=== PATIENT | male | born 1950 | race Caucasian/White ===

== ENCOUNTER 2017-06-02 08:03 | Emergency (ER) | payer MEDICARE, OTHER ==
[2017-06-02] MEDS ORDERED: NS 0.9% 1000 ML* 1,000 ML IV ONE (08:47)
[2017-06-02 09:24] LABS: Hematocrit 43 % (42-52); Hemoglobin 14.3 g/dl (14.0-18.0); Mean Corpuscular HGB Conc 34 g/dl (31-36); Mean Corpuscular Hemoglobin 31 pg (27-31); Mean Corpuscular Volume 92 fL (80-94); Mean Platelet Volume 9 um3 (7.4-10.4); Red Blood Count 4.65 10^6/ul (4.0-5.4); Red Cell Distribution Width 14 % (10.5-15); White Blood Count 6.8 10^3/ul (3.5-10.8)
[2017-06-02 09:35] LABS: ALT 17 U/L (7-52); AST 19 U/L (13-39); Alkaline Phosphatase 55 U/L (34-104); Anion Gap 7 mmol/L (2-11); BUN/Creatinine Ratio 14.3 (8-20); Blood Urea Nitrogen 13 mg/dL (6-24); C Reactive Protein < 1.00 mg/L (< 5.00); CO2 Carbon Dioxide 26 mmol/L (22-32); Calcium 9.3 mg/dL (8.6-10.3); Chloride 105 mmol/L (101-111); EGFR African American 107.5 (>60); EGFR Non-African American 83.6 (>60); Globulin 2.4 g/dL (2-4); Glucose 165 mg/dL (70-100); Lipase 17 U/L (11.0-82.0); Potassium 3.9 mmol/L (3.5-5.0); Sodium 138 mmol/L (133-145); Total Protein 6.4 g/dL (6.4-8.9)
[2017-06-02 10:52] LABS: Urine Bilirubin Negative (Negative); Urine Glucose Negative (Negative); Urine Nitrite Negative (Negative)
[2017-06-02] MEDS ORDERED: Iodixanol* (CONTRAST) 320 MG/ML 100 ML SDV IV ONE (11:21)
--- NOTE | 2017-06-02 11:42 | RAD ---
INDICATION: Abdominal pain and rectal bleeding. Anal protrusion since last night. Question colitis. Previous bilateral hernia repair. Previous surgery for duodenal ulcer. Hiatal hernia. Previous hemorrhoidectomy. COMPARISON: November 23, 2008 CT. TECHNIQUE: Multidetector CT images were obtained from the lung bases to the ischial tuberosities with 94 mL Visipaque 320 IV and oral contrast. Multiplanar reformation. REPORT: Unremarkable visualized inferior thorax. Too small to characterize 0.7 cm well-circumscribed hypodense lesion at the dome of the LEFT medial hepatic segment new compared with the 2008 exam is most suspicious for a cyst or hemangioma. This small solitary lesion is low suspicion based on morphology. Negative for additional focal hepatic lesions. Negative for biliary dilatation. No CT abnormality of the gallbladder, pancreas, spleen. Mild mural thickening at the gastric antrum is likely artifact due to incomplete distention. No perigastric inflammatory change evident. No CT abnormality of the decompressed duodenum, jejunum, or ileum. Normal retrocecal appendix visualized. Enteric contrast extends to the splenic flexure of the colon. Severe diverticulosis of the sigmoid colon without findings of acute diverticulitis. No CT abnormality conspicuous at the level of the distal rectum or anal canal. Negative for ascites, free air, hernias. Postsurgical change of bilateral inguinal hernia repairs. Normal adrenal glands. Unremarkable kidneys with symmetric nephrograms and pyelograms. Unremarkable nondilated ureters. Partially distended urinary bladder without wall thickening or visualized focal lesion. Prostatomegaly with the prostate protruding into the floor of the urinary bladder. Symmetric seminal vesicles. Negative for lymphadenopathy. Minimal atherosclerotic plaque of normal diameter abdominal aorta and iliac arteries. Physiologic distention of the IVC. Negative for suspicious focal osseous lesions. Mild polyarticular degenerative arthropathy. IMPRESSION: 1. Mural thickening at the gastric antrum is likely artifact due to incomplete distention. This common finding is only mentioned due to history of prior duodenal ulcer. If there is clinical concern for gastric pathology consider follow-up upper GI series. 2. Normal appendix documented. 3. Sigmoid diverticulosis without findings of diverticulitis. No CT evidence for colitis. 4. No CT abnormality conspicuous at the level of the distal rectum or anal canal. Correlate with clinical exam. 5. Negative for lymphadenopathy.
[2017-06-02 13:00] VITALS: BP 113/69
--- NOTE | 2017-06-02 13:01 | ED ---
Joel Arroyo Angela, scribed for Jonathon Mayo MD on 06/02/17 at 0838 . GI/ HPI - HPI Summary HPI Summary: This pt is a 67 y/o male presenting to [facility] c/o rectal bleeding x3 days with some abdominal discomfort. Pt reports that last night before he went to bed he noticed a little bit of stool with a lot of blood dispersed in the water. Pt states he does not feel abd pain but has discomfort, rated 1 out of 10 in severity. He notes he has had an anal protrusion since last night. Pt reports that over the weekend, 4 days ago, the pt had black stools but has gradually improved since then. This morning, pt states his stools were normal looking and had no blood. He denies chest pain, SOB, rhinorrhea, cough, cold. Pt has a PMHx of internal hemorrhoids and had a hemorrhoidectomy in 1999. He denies PMHx of diverticulosis. Pt is currently being treated for a stomach ulcer since December 2016, but has not had black stools with these. Pt is not on any anticoagulants. Pt is currently on novolog insulin, simvastatin, Esomeprazole 20 mg daily. Pt has stopped taking these medications: omeprazole (08/11/16), pantoprazole (), cetirizine (08/03/16). - History of Current Complaint Chief Complaint: EDGIBleed Time Seen by Provider: 06/02/17 08:27 Stated Complaint: RECTAL BLEEDING Hx Obtained From: Patient Onset/Duration: Started Days Ago Timing: Lasting Days Pain Intensity: 1 Location of Pain: Other - lower abdominal Associated Signs and Symptoms: Positive: Hematemesis, Blood w/Stool, Other: - Internal hemorrhoids. Negative: Back Pain, Dizziness, Weakness, Nausea, Vomiting, Rectal Pain, Diarrhea, Hematuria, Dysuria, Melena - Allergy/Home Medications Allergies/Adverse Reactions: Allergies Allergy/AdvReac Type Severity Reaction Status Date / Time No Known Allergies Allergy Verified 06/02/17 08:07 Home Medications: Home Medications Esomeprazole(NF) [NEXium(NF)] 20 mg PO DAILY 06/02/17 [History Confirmed ] Insulin ASPART (NF) [Novolog (NF)] 0 - 100 units SUBCUT DAILY 06/02/17 [History Confirmed 06/02/17] Simvastatin (NF) [Zocor (NF)] 40 mg PO DAILY 06/02/17 [History Confirmed ] PMH/Surg Hx/FS Hx/Imm Hx Endocrine/Hematology History: Reports: Hx Diabetes - type 1 Cardiovascular History: Denies: Hx Hypertension GI History: Reports: Hx Hiatal Hernia, Hx Ulcer Denies: Hx Diverticulosis - Surgical History Surgery Procedure, Year, and Place: Corrective left eye surgery: age 5, 1955. Broken left elbow: early spring 1972. Hemorroidectomy 12/11/1999. Colonoscopy: 08/26/01, 07/20,, 01/23/14. Endoscopy: 12/22/16 (duodenal ulcer, 1 polyp, hiatal hernia). Bilateral inguinal hernia surgery: 07/08/04 Infectious Disease History: Denies: Traveled Outside the [place] in Last 30 Days - Family History Known Family History: Negative: Other - colon cancer - Social History Alcohol Use: None Substance Use Type: Reports: None Smoking Status (MU): Never Smoked Tobacco Review of Systems Negative: Fever, Chills Eyes: Negative ENT: Negative Negative: Chest Pain Negative: Shortness Of Breath Positive: Abdominal Pain - discomfort Positive: other - bloody stools Positive: Other - internal hemorrhoids Negative: Headache, Weakness All Other Systems Reviewed And Are Negative: Yes Physical Exam - Summary Physical Exam Summary: The patient is well-nourished in no acute distress. The skin is warm and dry. Pt is pale looking. HEENT: The head is normocephalic and atraumatic. The pupils are equal and reactive. The conjunctivae are clear and without drainage. Nares are patent and without drainage. Mouth reveals moist mucous membranes and the throat is without erythema and exudate. The external ears are intact. The ear canals are patent and without drainage. The tympanic membranes are intact. Neck is supple with full range of motion and non-tender. Respiratory: Chest is non-tender. Lungs are clear to auscultation and breath sounds are symmetrical and equal. Cardiovascular: Hear is regular rate and rhythm. There is a systolic murmur in the left second ICS. There is no peripheral edema and pulses are symmetrical and equal. Abdomen: The abdomen is soft and there is left lower quadrant pain. There are normal bowel sounds heard in all four quadrants. There is no CVA tenderness. GI: There is a skin tag, there is a small anal fissure at about 3 o'clock. There is no active bleeding externally. On rectal exam there is red mucous blood noted. Musculoskeletal: There is no reproducible back pain noted. Extremities are non- tender with full range of motion. There is good capillary refill. There is no peripheral edema or calf tenderness elicited. Neurological: Patient is alert and oriented to person, place and time. The patient has symmetrical motor strength in all four extremities. Psychiatric: The patient has an appropriate affect and does not exhibit any anxiety or depression. Triage Information Reviewed: Yes Vital Signs On Initial Exam: Initial Vitals Temp Pulse Resp BP Pulse Ox 98.9 F 78 16 127/75 98 06/02/17 08:07 06/02/17 08:07 06/02/17 08:07 06/02/17 08:07 06/02/17 08:07 Vital Signs Reviewed: Yes Diagnostics - Vital Signs Vital Signs Temp Pulse Resp BP Pulse Ox 06/02/17 08:07 98.9 F 78 16 127/75 98 - Laboratory Lab Results: Lab Results 06/02/17 06/02/17 06/02/17 Range/Units 09:00 09:00 09:00 WBC 6.8 (3.5-10.8) 10^3/ul RBC 4.65 (4.0-5.4) 10^6/ul Hgb 14.3 (14.0-18.0) g/dl Hct 43 (42-52) % MCV 92 (80-94) fL MCH 31 (27-31) pg MCHC 34 (31-36) g/dl RDW 14 (10.5-15) % Plt Count 195 (150-450) 10^3/ul MPV 9 (7.4-10.4) um3 Neut % (Auto) 77.9 (38-83) % Lymph % (Auto) 12.7 L (25-47) % [place] % (Auto) 8.3 (1-9) % Eos % (Auto) 0.6 (0-6) % Baso % (Auto) 0.5 (0-2) % Absolute Neuts (auto) 5.3 (1.5-7.7) 10^3/ul Absolute Lymphs (auto) 0.9 L (1.0-4.8) 10^3/ul Absolute Monos (auto) 0.6 (0-0.8) 10^3/ul Absolute Eos (auto) 0 (0-0.6) 10^3/ul Absolute Basos (auto) 0 (0-0.2) 10^3/ul Absolute Nucleated RBC 0.01 10^3/ul Nucleated RBC % 0.1 INR (Anticoag Therapy) 0.97 (0.89-1.11) Sodium 138 (133-145) mmol/L Potassium 3.9 (3.5-5.0) mmol/L Chloride 105 (101-111) mmol/L Carbon Dioxide 26 (22-32) mmol/L Anion Gap 7 (2-11) mmol/L BUN 13 (6-24) mg/dL Creatinine 0.91 (0.67-1.17) mg/dL Est GFR ( Amer) 107.5 (>60) Est GFR (Non-Af Amer) 83.6 (>60) BUN/Creatinine Ratio 14.3 (8-20) Glucose 165 H (70-100) mg/dL Lactic Acid (0.5-2.0) mmol/L Calcium 9.3 (8.6-10.3) mg/dL Total Bilirubin 2.00 H (0.2-1.0) mg/dL AST 19 (13-39) U/L ALT 17 (7-52) U/L Alkaline Phosphatase 55 (34-104) U/L C-Reactive Protein < 1.00 (< 5.00) mg/L Total Protein 6.4 (6.4-8.9) g/dL Albumin 4.0 (3.2-5.2) g/dL Globulin 2.4 (2-4) g/dL Albumin/Globulin Ratio 1.7 (1-3) Lipase 17 (11.0-82.0) U/L Urine Color Urine Appearance Urine pH (5-9) Ur Specific [place] (1.010-1.030) Urine Protein (Negative) Urine Ketones (Negative) Urine Blood (Negative) Urine Nitrate (Negative) Urine Bilirubin (Negative) Urine Urobilinogen (Negative) Ur Leukocyte Esterase (Negative) Urine Glucose (Negative) 06/02/17 06/02/17 Range/Units 09:00 09:37 WBC (3.5-10.8) 10^3/ul RBC (4.0-5.4) 10^6/ul Hgb (14.0-18.0) g/dl Hct (42-52) % MCV (80-94) fL MCH (27-31) pg MCHC (31-36) g/dl RDW (10.5-15) % Plt Count (150-450) 10^3/ul MPV (7.4-10.4) um3 Neut % (Auto) (38-83) % Lymph % (Auto) (25-47) % [place] % (Auto) (1-9) % Eos % (Auto) (0-6) % Baso % (Auto) (0-2) % Absolute Neuts (auto) (1.5-7.7) 10^3/ul Absolute Lymphs (auto) (1.0-4.8) 10^3/ul Absolute Monos (auto) (0-0.8) 10^3/ul Absolute Eos (auto) (0-0.6) 10^3/ul Absolute Basos (auto) (0-0.2) 10^3/ul Absolute Nucleated RBC 10^3/ul Nucleated RBC % INR (Anticoag Therapy) (0.89-1.11) Sodium (133-145) mmol/L Potassium (3.5-5.0) mmol/L Chloride (101-111) mmol/L Carbon Dioxide (22-32) mmol/L Anion Gap (2-11) mmol/L BUN (6-24) mg/dL Creatinine (0.67-1.17) mg/dL Est GFR ( Amer) (>60) Est GFR (Non-Af Amer) (>60) BUN/Creatinine Ratio (8-20) Glucose (70-100) mg/dL Lactic Acid 0.7 (0.5-2.0) mmol/L Calcium (8.6-10.3) mg/dL Total Bilirubin (0.2-1.0) mg/dL AST (13-39) U/L ALT (7-52) U/L Alkaline Phosphatase (34-104) U/L C-Reactive Protein (< 5.00) mg/L Total Protein (6.4-8.9) g/dL Albumin (3.2-5.2) g/dL Globulin (2-4) g/dL Albumin/Globulin Ratio (1-3) Lipase (11.0-82.0) U/L Urine Color Straw Urine Appearance Clear Urine pH 7.0 (5-9) Ur Specific [place] 1.006 L (1.010-1.030) Urine Protein Negative (Negative) Urine Ketones Trace H (Negative) Urine Blood Negative (Negative) Urine Nitrate Negative (Negative) Urine Bilirubin Negative (Negative) Urine Urobilinogen Negative (Negative) Ur Leukocyte Esterase Negative (Negative) Urine Glucose Negative (Negative) Result Diagrams: 06/02/17 09:00 06/02/17 09:00 Lab Statement: Any lab studies that have been ordered have been reviewed, and results considered in the medical decision making process. - CT Abd/Pel CT CT Interpretation: Positive (See Comments) - IMPRESSION: 1. Mural thickening at the gastric antrum is likely artifact due to incomplete distention. This common finding is only mentioned due to history of prior duodenal ulcer. If there is clinical concern for gastric pathology consider follow-up upper GI series. 2. Normal appendix documented. 3. Sigmoid diverticulosis without findings of diverticulitis. No CT evidence for colitis. 4. No CT abnormality conspicuous at the level of the distal rectum or anal canal. Correlate with clinical exam. 5. Negative for lymphadenopathy. ED physician has reviewed this radiology report and agrees. CT Interpretation Completed By: Radiologist Re-Evaluation - Re-Evaluation First Eval Re-Evaluation Time: 12:40 Comment: I reviewed the CT results with the pt. He will follow up with Dr. Garibay. [facility] Course/Dx - Course Assessment/Plan: pt is a 67 y/o male presenting to [facility] c/o rectal bleeding x3 days with some abdominal discomfort. Pt reports anal protrusion last night with more rectal bleeding. Labs and CT abd/pel were obtained. Stool occult blood is negative. CT abd/pel shows 1. Mural thickening at the gastric antrum is likely artifact due to incomplete distention. This common finding is only mentioned due to history of prior duodenal ulcer. If there is clinical concern for gastric pathology consider follow-up upper GI series. 2. Normal appendix documented. 3. Sigmoid diverticulosis without findings of diverticulitis. No CT evidence for colitis. 4. No CT abnormality conspicuous at the level of the distal rectum or anal canal. Correlate with clinical exam. 5. Negative for lymphadenopathy. Pt will be discharged to home and will follow up with his PCP and Dr. Garibay. - Diagnoses Differential Diagnoses - Male: Cancer, Colitis, Diverticulosis, Hemorrhoids, Other - anal fissure, diverticulitis Provider Diagnoses: Possible rectal bleeding, Diverticulosis of colon Discharge - Discharge Plan Condition: Stable Disposition: HOME Patient Education Materials: Rectal Bleeding (ED) Referrals: Wiliam Jimenez DO [Primary Care Provider] - Logan Garibay MD [Medical Doctor] - Additional Instructions: Please follow up with your primary care provider, Dr. Jimenez, and Dr. Garibay, from GI. The documentation as recorded by the Joel morgan Angela accurately reflects the service I personally performed and the decisions made by me, Jonathon Mayo MD.
== END 2017-06-02 13:03 | disposition home or self-care (01) ==
LOC: ED 08:03
DX: K57.90 Diverticulosis of intestine, part unspecified, without perforation or abscess without bleeding (principal); K62.5 Hemorrhage of anus and rectum; K64.8 Other hemorrhoids
CPT/HCPCS: 36415; 74177; 80053; 81003; 82272; 83605; 83690; 85025; 85610; 86140; 99283; Q9967

== ENCOUNTER 2019-04-01 17:27 | Emergency (ER) | payer MEDICARE, OTHER ==
--- OUTSIDE RECORDS SUMMARY | 2019-04-01 17:43 | XMS REPORT | Continuity of Care Document ---
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 ETOH Use 06/02/2017 Denies alcohol use Tobacco Use Start: Unknown Patient has never smoked Recreational Drug Use Denies Drug Use Tobacco Use Start: Unknown Patient is a former 40 years ago - End: Unknown smoker occasional Cigars Smoking Status Reviewed: 03/29/19 Patient is a former 40 years ago - smoker occasional Cigars Exercise Type/Frequency Exercises regularly Stretches Allergies, Adverse Reactions, Alerts Active Allergies Reaction Severity Comments Date Omeprazole GI upset 03/29/2019 Esomeprazole GI upset 03/29/2019 Inactive Allergies NKDA 06/03/2017 Medications Active Medications SIG Qnty Indications Ordering Date Provider Clopidogrel 1 by mouth every 90tabs I35.0 Prasanht Epstein, 03/29/2019 Bisulfate day DO FACC 75mg Tablets Simvastatin take 1 tablet by Unknown 40mg mouth at bedtime Tablets Novolog Insulin pump - Unknown 100Unit/ML sliding scale Solution Centrum Silver 1 by mouth every Unknown day Tablets Tension Headache 2tabs prn aspirin Unknown Relief free 500-65 Tablets DGL 1/4 a tab week prn Unknown when thinks of it, herbal supplement Tamsulosin HCL 2 by mouth every Unknown 0.4mg day Capsules Probiotic 1 by mouth three Unknown Capsules times a week History Medications Omeprazole Take one tablet 30caps Z87.11 Prasanth Epstein, 2019 - 20mg by mouth daily DO [facility] 03/28/2019 Capsules Aspirin 81 1 by mouth every 30tabs Z87.11 Prasanth Epstein, 2019 - 81mg Tablets day DO [facility] 03/29/2019 Esomeprazole 1 by mouth every Unknown - Magnesium day 01/31/2018 20mg Capsules Vitamin D-400 1 by mouth every Unknown - 400Unit day 01/31/2018 Tablets Childrens Allergy daily during Unknown - allergy season 02/02/2018 12.5mg/5ML Liquid Loratadine Childrens 5 ml po bid Unknown - 09/01/2018 5mg/5ML Solution Vital Signs Date Vital Result Comment 03/29/2019 11:11am Height 67 inches 5'7" Weight 153.00 lb with shoes Heart Rate 64 /min BP Systolic Sitting 110 mmHg lue reg cuff BP Diastolic Sitting 60 mmHg lue reg cuff BP Systolic Standing 110 mmHg lue reg cuff BP Diastolic Standing 64 mmHg lue reg cuff Respiratory Rate 16 /min BMI (Body Mass Index) 24.0 kg/m2 Ejection Fraction 60-65% echo. 2019 2:08pm Height 67 inches 5'7" Weight 153.00 lb with shoes Heart Rate 72 /min BP Systolic Sitting 100 mmHg lue reg cuff BP Diastolic Sitting 54 mmHg lue reg cuff BP Systolic Standing 94 mmHg lue reg cuff BP Diastolic Standing 56 mmHg lue reg cuff Respiratory Rate 16 /min BMI (Body Mass Index) 24.0 kg/m2 Ejection Fraction 65-70% echo. 08/23/18 09/02/2018 11:05am Height 67 inches 5'7" Weight 153.00 lb with shoes Heart Rate 67 /min BP Systolic Sitting 106 mmHg lue reg cuff BP Diastolic Sitting 68 mmHg lue reg cuff BP Systolic Standing 108 mmHg lue reg cuff BP Diastolic Standing 70 mmHg lue reg cuff BMI (Body Mass Index) 24.0 kg/m2 Ejection Fraction 65-70% echo. 08/23/18 02/03/2018 3:56pm Height 67 inches 5'7" Weight 153.00 lb no shoes Heart Rate 80 /min irregular BP Systolic Sitting 106 mmHg Lue reg cuff BP Diastolic Sitting 62 mmHg Lue reg cuff BP Systolic Standing 108 mmHg Lue reg cuff BP Diastolic Standing 60 mmHg Lue reg cuff Respiratory Rate 16 /min BMI (Body Mass Index) 24.0 kg/m2 01/19/2018 3:23pm Height 67 inches 5'7" Weight 152.00 lb Heart Rate 76 /min BP Systolic Sitting 126 mmHg lue reg cuff BP Diastolic Sitting 60 mmHg lue reg cuff BP Systolic Standing 112 mmHg BP Diastolic Standing 70 mmHg Respiratory Rate 16 /min BMI (Body Mass Index) 23.8 kg/m2 Ejection Fraction 60% 04/22/2017 echo 06/03/2017 10:17am Height 67 inches 5'7" Weight 165.00 lb no shoes Heart Rate 68 /min BP Systolic 112 mmHg Rue reg cuff BP Diastolic 74 mmHg Rue reg cuff BP Systolic Sitting 116 mmHg Lue reg cuff BP Diastolic Sitting 76 mmHg Lue reg cuff BP Systolic Standing 122 mmHg Lue reg cuff BP Diastolic Standing 82 mmHg Lue reg cuff Respiratory Rate 15 /min BMI (Body Mass Index) 25.8 kg/m2 Ejection Fraction 60% 04/22/2017-echo Results Test Date Facility Test Result H/L Range Note Pre Cath 2019 [facility] Partial 31.6 seconds N 26.0- 38.[address] [place] [address] PTT [phone] CBC Auto Diff 2019 [facility] White Blood 6.7 10^3/uL N 3.5-10.[address] [place] [address] [phone] Red Blood Count 4.38 10^6/uL N 4.18-5.48 Hemoglobin 14.0 g/dL N 14.0-18.0 Hematocrit 41 % Low 42-52 Mean Corpuscular Volume 94 fL N 80-94 Mean Corpuscular Hemoglobin 32 pg High 27-31 Mean Corpuscular HGB Conc 34 g/dL N 31-36 Red Cell Distribution Width 13 % N 10-15 Platelet Count 183 10^3/uL N 150-450 Mean Platelet Volume 8.9 fL N 7.4-10.4 Abs Neutrophils 4.5 10^3/uL N 1.5-7.7 Abs Lymphocytes 1.3 10^3/uL N 1.0-4.8 Abs Monocytes 0.6 10^3/uL N 0-0.8 Abs Eosinophils 0.2 10^3/uL N 0-0.6 Abs Basophils 0.1 10^3/uL N 0-0.2 Abs Nucleated RBC 0.0 10^3/uL Granulocyte % 67.6 % Lymphocyte % 18.9 % Monocyte % 8.9 % Eosinophil % 3.6 % Basophil % 1.0 % Nucleated Red Blood Cells % 0.0 Inr/Protime 2019 [facility] Inr 1.03 N 0.82-1.[address] [place] [address] [phone] Basic Metabolic 2019 [facility] Sodium 141 mmol/L N 135- [address] [place] [address] [phone] Potassium 4.2 mmol/L N 3.5-5.0 Chloride 105 mmol/L N 101-111 Co2 Carbon Dioxide 30 mmol/L N 22-32 Anion Gap 6 mmol/L N 2-11 Glucose 171 mg/dL High 70-100 Blood Urea Nitrogen 17 mg/dL N 6-24 Creatinine 0.99 mg/dL N 0.67-1.17 BUN/Creatinine Ratio 17.2 N 8-20 Calcium 9.6 mg/dL N 8.6-10.3 Egfr Non- 75.4 >60 Egfr 91.2 >60 2 Laboratory test 06/22/2017 [facility] B-Type Natriuretic 26 pg/ mL N [address] [place] [address] [phone] 1 Standard intensity warfarin therapeutic range: 2.0-3.0 High intensity warfarin therapeutic range: 2.5-3.5 2 Because ethnic data is not always readily available, this report includes an eGFR for both -Americans and non- Americans. The National Kidney Disease Education Program (NKDEP) does not endorse the use of the MDRD equation for patients that are not between the ages of 18 and 70, are , have extremes of body size, muscle mass, or nutritional status, or are non- or non-. According to the National Kidney Foundation, irrespective of diagnosis, the stage of the disease is based on the level of kidney function: Stage Description GFR(mL/min/1.73 m(2)) 1 Kidney damage with normal or decreased GFR 90 2 Kidney damage with mild decrease in GFR 60-89 3 Moderate decrease in GFR 30-59 4 Severe decrease in GFR 15-29 5 Kidney failure <15 (or dialysis) 3 >100 to <200 pg/mL: likely compensated congestive heart failure (CHF) 200 to 400 pg/mL: likely moderate CHF >400 pg/mL: likely moderate to severe CHF Procedures Date Code Description Status 03/22/2019 46669 Cath PLMT&NJX L Ventriculog Img S&I Completed 03/21/2019 88971 ECHO Transthoracic, Real-Time 2D With Doppler And Color Completed Flow 2019 07849 EKG Tracing & Interpretation Completed 08/23/2018 64189 ECHO Transthoracic, Real-Time 2D With Doppler And Color Completed Flow 08/23/2018 95260 ECHO Transthoracic, Real-Time 2D With Doppler And Color Completed Flow 02/23/2018 46304 Stress Test Completed 02/03/2018 02692 EKG Tracing & Interpretation Completed 07/07/2017 36114 ECHO Stress Test Incl Perf Contiuous ekg Monitoring W/Phys Completed Superv 06/03/2017 05823 EKG Tracing & Interpretation Completed Encounters Type Date Location Provider Dx Diagnosis Office Visit 2019 [facility] Prasanth Epstein, R07.89 Other chest pain 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 I35.0 Nonrheumatic Of Moira Epstein, DO aortic (valve) FACC stenosis E10.8 Type 1 diabetes mellitus with unspecified complications E78.5 Hyperlipidemia, unspecified Z87.11 Personal history of peptic ulcer disease Office Visit 01/19/2018 3:40p [facility] Prasanth S. I35.0 Nonrheumatic Of Moira Epstein, DO aortic (valve) FACC stenosis E10.8 Type 1 diabetes mellitus with unspecified complications E78.5 Hyperlipidemia, unspecified Z87.11 Personal history of peptic ulcer disease I71.2 Thoracic aortic aneurysm, without rupture F17.201 Nicotine dependence, unspecified, in remission Office Visit 06/03/2017 10:40a [facility] Prasanth S. I35.0 Nonrheumatic Of Moira Epstein, DO aortic (valve) FACC stenosis R06.02 Shortness of breath E10.8 Type 1 diabetes mellitus with unspecified complications E78.5 Hyperlipidemia, unspecified Z87.11 Personal history of peptic ulcer disease Plan of Treatment 03/29/2019 - Prasanth Epstein FACCI35.0 Nonrheumatic aortic (valve) stenosisNew Medication:Clopidogrel Bisulfate 75 mg - 1 by mouth every dayComments:Do not take any more aspirinWait 3 days for your stomach to reset itself and start clopidogrel (generic plavix) 75 mg once a day.Follow up:f/u after AVR
--- OUTSIDE RECORDS SUMMARY | 2019-04-01 17:43 | XMS REPORT | Continuity of Care Document ---
:1950 External Reference #:[id number] Author Name Neeta Brady Care Team Providers Name Role Phone Wiliam Jimenez DO Primary Care Physician Unavailable Payers Date Identification Numbers Payment Provider Subscriber Policy Number: [id number] Medicare Higinio Ross PayID: [id number] [address] [place] [address] Policy Number: [id number] [facility] [employer]) Higinio Ross Group Number: [id number] 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 ETOH Use 06/02/2017 Denies alcohol use Tobacco Use Start: Unknown Patient has never smoked Recreational Drug Use Denies Drug Use Tobacco Use Start: Unknown Patient is a former 40 years ago - End: Unknown smoker occasional Cigars Smoking Status Reviewed: 03/20/19 Patient is a former 40 years ago - smoker occasional Cigars Exercise Type/Frequency Exercises regularly Stretches Allergies, Adverse Reactions, Alerts Description No Known Drug Allergies Medications Active Medications SIG Qnty Indications Ordering Date Provider Omeprazole Take one tablet by 30caps Z87.11 Prasanth Epstein, 2019 20mg mouth daily DO FACC Capsules Aspirin 81 1 by mouth every 30tabs Z87.11 Prasanth Epstein, 2019 81mg day DO FACC Tablets Simvastatin take 1 tablet by Unknown [...] Unknown Capsules times a week History Medications Esomeprazole Magnesium 1 by mouth every day Unknown - 2017 20mg Capsules Vitamin D-400 1 by mouth every day Unknown - 01/31/2018 400Unit Tablets Childrens Allergy daily during allergy Unknown - 02/02/2018 12.5mg/5ML Liquid season Loratadine Childrens 5 ml po bid Unknown - 09/01/2018 5mg/5ML Solution Vital Signs Date Vital Result Comment 2019 2:08pm Height 67 inches 5'7" Weight [...] Date Facility Test Result H/L Range Note Laboratory test 06/22/2017 [facility] B-Type Natriuretic 26 pg/ mL N [address] [address] [phone] 1 >100 to <200 pg/mL: likely compensated congestive heart failure (CHF) 200 to 400 pg/mL: likely moderate CHF >400 pg/mL: likely moderate to severe CHF Procedures Date Code Description Status 2019 70719 EKG Tracing & Interpretation Completed 08/23/2018 33742 ECHO Transthoracic, Real-Time 2D With Doppler And Color Completed Flow 08/23/2018 57296 ECHO Transthoracic, Real-Time 2D With Doppler And Color Completed Flow 02/23/2018 54118 Stress Test Completed 02/03/2018 55187 EKG Tracing & Interpretation Completed 07/07/2017 75779 ECHO Stress Test Incl Perf Contiuous ekg Monitoring W/Phys Completed Superv 06/03/2017 54135 EKG Tracing & Interpretation Completed Encounters Type Date Location Provider Dx Diagnosis Office Visit 2019 [facility] Prasanth Epstein, R07.89 Other chest pain 2:20p Of [employer] DO FACC R06.02 Shortness of breath I35.0 Nonrheumatic aortic (valve) stenosis E10.8 Type 1 diabetes mellitus with unspecified complications F17.201 Nicotine dependence, unspecified, in remission Z87.11 Personal history of peptic ulcer disease Office Visit 09/02/2018 11:20a [facility] Prasanth S. I35.0 Nonrheumatic Of [facility] Lucian, DO aortic (valve) FACC stenosis E10.8 Type 1 diabetes mellitus with unspecified complications E78.5 Hyperlipidemia, unspecified Z87.11 Personal history of peptic ulcer disease Office Visit 01/19/2018 3:40p [facility] Prasanth S. I35.0 Nonrheumatic Of [facility] Lucian, DO aortic (valve) FACC stenosis E10.8 Type 1 diabetes mellitus with unspecified complications E78.5 Hyperlipidemia, unspecified Z87.11 Personal history of peptic ulcer disease I71.2 Thoracic aortic aneurysm, without rupture F17.201 Nicotine dependence, unspecified, in remission Office Visit 06/03/2017 10:40a [facility] Prasanth S. I35.0 Nonrheumatic Of [facility] Lucian, DO aortic (valve) FACC stenosis R06.02 Shortness of breath E10.8 Type 1 diabetes mellitus with unspecified complications E78.5 Hyperlipidemia, unspecified Z87.11 Personal history of peptic ulcer disease Plan of Treatment Future Appointment(s):03/21/2019 3:00 pm - [facility] ECHO Schedule at [facility]2019 - Prasanthanuel Epstein, DO FACCR07.89 Other chest painNew Labs:Pre Cath Panel, Ordered: 03/20/19New Orders:Cardiac Catheterization , Ordered: 03/20/19Comments:Restart aspirin 81 mg once a day but take it with the omeprazoleFollow up:Schedule echo tomorrow (Wednesday 03/21) Call and get Dr. Garibay's 2 most recent office notes Please schedule cardiac catheterization Wednesday with Dr. Burnham f/u wound check with meR06.02 Shortness of pjftlhD86.0 Nonrheumatic aortic (valve) stenosisNew Orders:Echocardiogram, Ordered: 03/20/19E10.8 Type 1 diabetes mellitus with unspecified fsepjdnpgtzemH53.201 Nicotine dependence, unspecified, in astpeobepK96.11 Personal history of peptic ulcer diseaseNew Medication:Omeprazole 20 mg - Take one tablet by mouth dailyAspirin 81 81 mg - 1 by mouth every day
[2019-04-01 17:56] LABS: Urine Appearance Clear; Urine Bilirubin Negative (Negative); Urine Blood Negative (Negative); Urine Color Straw; Urine Glucose Negative (Negative); Urine Ketones Negative (Negative); Urine Nitrite Negative (Negative); Urine Protein Negative (Negative); Urine Specific Gravity 1.005 (1.010-1.030); Urine Urobilinogen Negative (Negative)
--- NOTE | 2019-04-01 18:00 | ED ---
HPI Chest Pain - HPI Summary HPI Summary: Patient is a 69 y old M brought by EMS accompanied by with chief complaint of chest pain described as ache rated at 0/10 currently that occurred today 04/01 while sitting. Symptoms aggravated by nothing. Symptoms alleviated by nitroglycerin. Patient reports shortness of breath. Patient denies nausea, vomiting, diaphoresis, dizziness. Per EMS, patients chest pain was initially rated 4/10 in severity, but then improved to 0/10 after nitroglycerin. Per EMS, patient has an aortic valve replacement scheduled in [place] in 2-3 weeks. Patient recently started on Plavix. Patient reports that he had a cardiac catheterization done last week by Dr. Burnham. Patient reports that he has a surgical consultation on 04/18/19. - History of Current Complaint Chief Complaint: EDChestPainROMI Time Seen by Provider: 04/01/19 17:38 Hx Obtained From: Patient Onset/Duration: Resolved Timing: Lasting Hours Initial Severity: Mild - 4/10 Current Severity: None Pain Intensity: 0 Pain Scale Used: 0-10 Numeric Chest Pain Radiates: No Character: Dull/Aching Aggravating Factor(s): Nothing Alleviating Factor(s): Other: - Nitroglycerin Associated Signs and Symptoms: Positive: Shortness of Breath. Negative: Dizziness, Diaphoresis, Nausea, Vomiting - Allergy/Home Medications Allergies/Adverse Reactions: Allergies Allergy/AdvReac Type Severity Reaction Status Date / Time No Known Allergies Allergy Verified 06/02/17 08:07 Home Medications: Home Medications Clopidogrel TAB* [Plavix TAB*] 75 mg PO DAILY 04/01/19 [History Confirmed ] PMH/Surg Hx/FS Hx/Imm Hx Previously Healthy: No Endocrine/Hematology History: Reports: Hx Diabetes - type 1 Cardiovascular History: Reports: Hx Angina, Hx Hypercholesterolemia, Other Cardiovascular Problems/Disorders - aortic stenosis Denies: Hx Coronary Artery Disease, Hx Hypertension, Hx Myocardial Infarction , Hx Pacemaker/ICD, Hx Valvular Heart Disease Respiratory History: Denies: Hx Asthma, Hx Chronic Obstructive Pulmonary Disease (COPD) GI History: Reports: Hx Hiatal Hernia, Hx Ulcer Denies: Hx Diverticulosis History: Denies: Hx Chronic Renal Failure, Hx Renal Disease Sensory History: Reports: Hx Contacts or Glasses Denies: Hx Hearing Aid Opthamlomology History: Reports: Hx Contacts or Glasses - Surgical History Surgery Procedure, Year, and Place: Corrective left eye surgery: age 5, 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 Broken left elbow: early spring 1972. Hemorroidectomy 12/11/1999. Colonoscopy: 08/26/01, 07/20,, 01/23/14. Endoscopy: 12/22/16 (duodenal ulcer, 1 polyp, hiatal hernia). Bilateral inguinal hernia surgery: 07/08/04 Infectious Disease History: No Infectious Disease History: Denies: Traveled Outside the [place] in Last 30 Days - Family History Known Family History: Negative: Other - colon cancer - Social History Alcohol Use: None Hx Substance Use: No Substance Use Type: Reports: None Hx Tobacco Use: No Smoking Status (MU): Never Smoked Tobacco Review of Systems Negative: Skin Diaphoresis Positive: Chest Pain Positive: Shortness Of Breath Negative: Vomiting, Nausea Neurological: Other - (-): dizziness All Other Systems Reviewed And Are Negative: Yes Physical Exam - Summary Physical Exam Summary: VITAL SIGNS: Reviewed. GENERAL: Patient is a well-developed and nourished MALE who is lying comfortable in the stretcher. Patient is not in any acute respiratory distress. HEAD AND FACE: No signs of trauma. No ecchymosis, hematomas or skull depressions. No sinus tenderness. EYES: PERRLA, EOMI x 2, No injected conjunctiva, no nystagmus. EARS: Hearing grossly intact. Ear canals and tympanic membranes are within normal limits. MOUTH: Oropharynx within normal limits. NECK: Supple, trachea is midline, no adenopathy, no JVD, no carotid bruit, no c- spine tenderness, neck with full ROM. CHEST: Symmetric, no tenderness at palpation. LUNGS: Clear to auscultation bilaterally. No wheezing or crackles. CVS: Regular rate and rhythm, S1 and S2 present, ejection systolic murmur 2/6 ABDOMEN: Soft, non-tender. No signs of distention. No rebound, no guarding, and no masses palpated. Bowel sounds are normal. EXTREMITIES: FROM in all major joints, no edema, no cyanosis or clubbing. NEURO: Alert and oriented x 3. No acute neurological deficits. Speech is normal and follows commands. SKIN: Dry and warm. Triage Information Reviewed: Yes Vital Signs On Initial Exam: Initial Vitals Temp Pulse Resp BP Pulse Ox 98.6 F 70 16 122/78 98 04/01/19 17:28 04/01/19 17:28 04/01/19 17:28 04/01/19 17:28 04/01/19 17:28 Vital Signs Reviewed: Yes Diagnostics - Vital Signs Vital Signs Temp Pulse Resp BP Pulse Ox 04/01/19 17:41 98 04/01/19 17:28 98.6 F 70 16 122/78 98 - Laboratory Result Diagrams: 04/01/19 17:50 04/01/19 17:50 Lab Statement: Any lab studies that have been ordered have been reviewed, and results considered in the medical decision making process. - Radiology Chest X-Ray Radiology Interpretation Completed By: ED Physician Summary of Radiographic Findings: No acute process. Pending official report. - EKG 4 Cardiac Rate: NL - 69 BPM EKG Rhythm: Sinus Rhythm EKG Comparison: No Significant Change - 12/29/14 Summary of EKG Findings: Sinus rhythm at [address] elevations. ST depressions in B4, B5, B6. Similar to previous EKG on 12/29/14. 2025 Cardiac Rate: NL - 77 EKG Rhythm: Sinus Rhythm EKG Comparison: No Significant Change Summary of EKG Findings: Sinus rhythm at [address] elevations. Similar to previous EKG done earlier today at 17:34. Re-Evaluation - Re-Evaluation First Eval Re-Evaluation Time: 20:32 Comment: Physician discusses updates on plan of care including EKG updates with patient. Second Eval Re-Evaluation Time: 21:36 Comment: Physician discusses discharge with patient. Patient agrees to discharge. Chest Pain Course/Dx - Course Assessment/Plan: Patient is a 69 y old M brought by EMS accompanied by with chief complaint of chest pain described as ache rated at 0/10 currently that occurred today 04/01/19 while sitting. Symptoms aggravated by nothing. Symptoms alleviated by nitroglycerin. Patient reports shortness of breath. Patient denies nausea, vomiting, diaphoresis, dizziness. Per EMS, patients chest pain was initially rated 4/10 in severity, but then improved to 0/10 after nitroglycerin. Per EMS, patient has an aortic valve replacement scheduled in [place] in 2-3 weeks. Patient recently started on Plavix. Patient reports that he had a cardiac catheterization done last week by Dr. Burnham. Patient reports that he has a surgical consultation on 04/18/19. Blood test results without any significant abnormality except for glucose of 150 and total bilirubin is 1.5. Urinalysis is negative for UTI. Troponin 1 is 0.00. EKG shows a normal sinus rhythm without any ST elevations. The patient reported that he doesnt feel well therefore I decided to another EKG. Second EKG shows a normal sinus rhythm without any ST elevations. At this time I discussed my physical exam and findings with Dr. 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 Third troponin is 0.00. Patient is hemodynamically stable alert and oriented 3. - Diagnoses Provider Diagnoses: Chest pain - Provider Notifications Discussed Care Of Patient With: Jos Rojas Time Discussed With Above Provider: 20:38 Instructed by Provider To: Other - Dr. Rojas, cardiology, doesnt recommend any further workup and states that the chest pain is probably secondary aortic valve stenosis. He recommends discharge and follow up with primary custom shop worker and primary care provider. Discharge - Sign-Out/Discharge Documenting (check all that apply): Patient Departure - discharge Patient Received Moderate/Deep Sedation with Procedure: No - Discharge Plan Condition: Stable Disposition: HOME Patient Education Materials: Chest Pain (ED) Referrals: Wiliam Jimenez DO [Primary Care Provider] - 3 Days Additional Instructions: Follow up with primary care provider and primary custom shop worker within 3 days. Return to emergency department for any new or worsening symptoms. - Billing Disposition and Condition Condition: STABLE Disposition: Home - Attestation Statements Document Initiated by Keith: Yes Documenting Scribe: Isatu Flynn Provider For Whom Keith is Documenting (Include Credential): Alberto Talavera MD Scribe Attestation: I, Isatu Flynn, scribed for Alberto Talavera MD on 04/03/19 at 2013. Scribe Documentation Reviewed: Yes Provider Attestation: The documentation as recorded by the ofeliaibsoledad, Isatu Flynn accurately reflects the service I personally performed and the decisions made by me, Alberto Talavera MD Status of Scribe Document: Viewed
[2019-04-01 18:05] LABS: ABS Basophils 0.1 10^3/ul (0-0.2); ABS Eosinophils 0.2 10^3/ul (0-0.6); ABS Lymphocytes 1.1 10^3/ul (1.0-4.8); ABS Monocytes 0.7 10^3/ul (0-0.8); ABS Neutrophils 4.5 10^3/ul (1.5-7.7); Eosinophil % 3.1 %; Hematocrit 43 % (42-52); Hemoglobin 14.4 g/dL (14.0-18.0); Lymphocyte % 16.2 %; Mean Corpuscular HGB Conc 34 g/dL (31-36); Mean Corpuscular Hemoglobin 31 pg (27-31); Mean Corpuscular Volume 94 fL (80-94); Mean Platelet Volume 8.7 fL (7.4-10.4); Platelet Count 180 10^3/uL (150-450); Red Blood Count 4.58 10^6 /uL (4.18-5.48); Red Cell Distribution Width 14 % (10-15); White Blood Count 6.6 10^3/uL (3.5-10.8)
[2019-04-01 18:16] LABS: INR 1.06 (0.82-1.09)
[2019-04-01 18:21] LABS: Albumin/Globulin Ratio 1.7 (1-3); BUN/Creatinine Ratio 17.1 (8-20); EGFR Non-African American 66.1 (>60); Globulin 2.4 g/dL (2-4); Total Bilirubin 1.5 mg/dL (0.2-1.0); Total Protein 6.4 g/dL (6.4-8.9)
[2019-04-01 18:23] LABS: Troponin I 0.01 ng/mL (<0.04)
[2019-04-01 18:26] LABS: CKMB ng/mL 3.4 ng/mL (0.6-6.3)
[2019-04-01 19:16] LABS: TSH (Thyroid Stimulating Horm) 1.64 mcIU/mL (0.34-5.60)
[2019-04-01 22:10] VITALS: BP 136/77
== END 2019-04-01 22:00 | disposition home or self-care (01) ==
LOC: ED 17:27
DX: R07.9 Chest pain, unspecified (principal); E10.9 Type 1 diabetes mellitus without complications; E78.00 Pure hypercholesterolemia, unspecified; Z79.01 Long term (current) use of anticoagulants
CPT/HCPCS: 36415; 71045; 80053; 81003; 82550; 82553; 83880; 84443; 84484; 85025; 85610; 93005; 99283